=== PATIENT | male | born 1965 | race Caucasian/White ===

== ENCOUNTER 2023-11-26 07:45 | Outpatient (CLI) | payer MEDICARE, OTHER ==
[~2023-11-26] VITALS: Ht 185.6 cm; Wt 104.4 kg
[~2023-11-26 07:45] MED LIST: COREG12.5 MG PO; DULCOLAX STOOL100 MG PO; KLONOPIN 1MG1 MG PO; LIPITOR 40MG TA40 MG PO; METHADONE H10 MG/TAB PO; MIRALAX PA17 GM/Dose PO; PROTONIX 40MG T40 MG PO; ROXICODONE 55 MG/TAB PO; TYLENOL PM EXTR1 TA1 PO; VITAMIN D250 MCG PO
[2023-11-26 08:42] VITALS: BP 142/83; PULSE 52; TEMP 97.7
[2023-11-26] MEDS ORDERED: COMPAZINE 110 MG/TAB PO ×2 (08:51→08:52)
[2023-11-26] MEDS ORDERED: ZAROXOLYN 2.52.5 MG PO (08:54)
[2023-11-26] MEDS ORDERED: Iohexol 300 - 100 ML VIAL IV ONE (10:06)
[2023-11-26 10:25] VITALS: BP 126/74; PULSE 55
--- NOTE | 2023-11-26 10:25 | NUR ---
Aaron is transferred back to [facility] after AV fistulogram with Dr. Nolasco. Site looks good, no evidence of bleeding to fistula site. BS report and handoff of care to Brittany SOLORZANO.
[2023-11-26 10:30] VITALS: BP 121/96; PULSE 50
[2023-11-26 10:45] VITALS: BP 116/82; PULSE 54
--- NOTE | 2023-11-26 10:58 | NUR ---
PT TOLERATED RECOVERY PERIOD WELL. VS REMAINED WITHIN NORMAL LIMITS. PT FREE FROM ACUTE CONCERNS AND COMPLAINTS. IV DISCONTINUED. PT DID NOT RECIEVE SEDATION INTRA-OPERATIVELY, [facility].
== END 2023-11-26 10:59 | disposition home or self-care (01) ==
LOC: COL.CAR 07:45
DX: T82.898A Other specified complication of vascular prosthetic devices, implants and grafts, initial encounter (principal); N18.6 End stage renal disease; Z99.2 Dependence on renal dialysis; Z87.891 Personal history of nicotine dependence
CPT/HCPCS: C1769; C1894; J1644; Q9967